=== PATIENT | female | born 1995 | race Caucasian/White ===

== ENCOUNTER 2018-12-17 14:19 | Inpatient (IN) | payer OTHER ==
[~2018-12-17] VITALS: Ht 165.1 cm; Wt 126.1 kg
[2018-12-17 15:32] LABS: BE -2.4 mmol/L (-2 to +3); HCO3 22.9 mmol/L (22.0-26.0); PCO2 41.3 mmHg (35.0-45.0); pH 7.362 (7.340-7.450)
[2018-12-17 15:33] LABS: PO2 250.7 mmHg (75.0-100.0)
--- NOTE | 2018-12-17 15:48 | EKG ---
[place] [address] ELECTROCARDIOGRAM REPORT Name: KARY RODRIGUESIE Room: [address] ADM IN M.R.#: [id number] Admission: 12/17/18 Attend Phys: Tom Meehan Discharge: Date of : 89 Report #: [id number] THIS REPORT FOR: //name// [facility] Test Date: 2018-12-17 Test Time: 14:47:34 Pat Name: EVAN RODRIGUES Department: Room: [address] Gender: F Family Program Specialist: NORA : 1995 Requested By: Jose Roth Order Number: [id number] SARAVIA: Antonio Miles Measurements Intervals [place] Rate: 99 P: 26 TN: 140 QRS: -17 QRSD: 99 T: 15 QT: 344 QTc: 442 Interpretive Statements Sinus rhythm Borderline left axis deviation No previous ECG available for comparison Electronically Signed On 12-17-2018 15:48:01 [employer]ARD TEACH[employer] by Antonio Miles [email or web address] <ELECTRONICALLY SIGNED> By: Antonio Miles MD, [facility] 12/17/18 1548 144 144 Antonio Miles MD, FACC /EPI
[2018-12-17 16:00] LABS: ABSOLUTE MONOCYTES 0.1 thou/uL (0.0-1.2); BASOPHILS 0.4 %; EOSINOPHILS 0.3 %; HEMATOCRIT 37.8 % (37.0-47.0); HEMOGLOBIN 12.4 gm/dL (12.0-15.0); MCH 26.7 pg (26.0-34.0); MCHC 32.7 g/dL (28.0-37.0); MCV 81.4 fL (80.0-100.0); MPV 7.6 fl. (7.2-11.1); NUCLEATED RBCS 0 /100WBC; PLATELET COUNT* 273 thou/uL (150-400); RBC 4.64 mil/uL (4.20-5.00); RDW-CV 15.7 % (10.5-14.5); WBC 10.7 thou/uL (4.0-11.0)
[2018-12-17 16:03] LABS: CALCIUM 8.2 mg/dL (8.5-10.1); CREATININE 0.8 mg/dL (0.6-1.3); POTASSIUM 3.6 mmol/L (3.5-5.1)
[2018-12-17 16:07] LABS: ABSOLUTE LYMPHOCYTES 1.1 thou/uL (0.8-5.3); ABSOLUTE NEUTROPHILS 9.4 thou/uL (1.6-8.1); LYMPHOCYTES 10.3 %; POLYS 87.9 %
[2018-12-17 16:08] LABS: MAGNESIUM 1.6 mg/dL (1.8-2.4); TOTAL BILIRUBIN 0.2 mg/dL (<0.1-1.0); TOTAL PROTEIN 6.8 g/dL (6.4-8.2)
--- NOTE | 2018-12-17 17:37 | 2DMMODE ---
[place] [address] 2 D/M-MODE ECHOCARDIOGRAM Name: EVAN RODRIGUES Room: [address] ADM IN [facility]#: [id number] Admission: 12/17/18 Attend Phys: Jose Roth Discharge: Date of : 89 Date of Service: 12/17/18 1737 Report #: [id number] THIS REPORT FOR: //name// APPROVED REPORT Study performed: 12/17/2018 16:30:19 EXAM: Comprehensive 2D, Doppler, and color-flow Echocardiogram Patient Location: In-Patient Room #: [facility] Status: routine BSA: 2.30 HR: 90 bpm BP: 148/88 mmHg Rhythm: NSR Other Information Study Quality: Good Indications Aspiration, rule out effusion 2D Dimensions IVSd: 10.26 (7-11mm) LVOT Diam: 19.11 (18-24mm) LVDd: 41.99 mm PWd: 9.66 (7-11mm) Ascending Ao: 27.92 (22-36mm) LVDs: 21.27 (25-40mm) Aortic Root: 29.52 mm Volumes Left Atrial Volume (Systole) LA ESV Index: 14.70 mL/m2 Aortic Valve AoV Peak Capo.: 1.22 m/s AO Peak Gr.: 5.91 mmHg LVOT Max P.84 mmHg AO Mean Gr.: 3.03 mmHg LVOT Mean P.40 mmHg LVOT Max V: 0.84 m/s AO V2 VTI: 22.45 cm LVOT Mean V: 0.54 m/s ADRIANA (VTI): 2.07 cm2 LVOT V1 VTI: 16.22 cm Mitral Valve E/A Ratio: 1.14 MV Decel. Time: 238.27 ms MV E Max Capo.: 0.74 m/s MV PHT: 69.10 [place] [address] 2 D/M-MODE ECHOCARDIOGRAM Name: ZAYDA RODRIGUESYLIE Room: [address] IN .R.#: [id number] Admission: 12/17/18 Attend Phys: Jose Roth Discharge: Date of : 89 Date of Service: 12/17/18 1737 Report #: [id number] MVA (PHT): 3.18 cm2 TDI E/Lateral E': 6.73 E/Medial E': 6.17 Medial E' Capo.: 0.12 m/s Lateral E' Capo.: 0.11 m/s Pulmonary Valve PV Peak Capo.: 1.02 m/s PV Peak Gr.: 4.19 mmHg Tricuspid Valve RAP Estimate: 5.00 mmHg TR Peak Gr.: 26.30 mmHg RVSP: 31.00 mmHg PA Pressure: 31.00 mmHg Left Ventricle The left ventricle is normal size. There is normal LV segmental wall motion. There is normal left ventricular wall thickness. Left ventricular systolic function is normal. LVEF is 65-70%. The left ventricular diastolic function is normal. Right Ventricle The right ventricle is normal size. The right ventricular systolic function is normal. Atria The left atrium size is normal. The right atrium size is normal. Aortic Valve The aortic valve is normal in structure. No aortic regurgitation is present. There is no aortic valvular stenosis. Mitral Valve The mitral valve is normal in structure. There is no mitral valve regurgitation noted. No evidence of mitral valve stenosis. Tricuspid Valve The tricuspid valve is normal in structure. Trace tricuspid regurgitation. The RVSP is 30 mmHg. Pulmonic Valve The pulmonary valve is normal in structure. There [place] [address] 2 D/M-MODE ECHOCARDIOGRAM Name: EVAN RODRIGUES Room: [address] IN [facility]#: [id number] Admission: 12/17/18 Attend Phys: Jose Roth Discharge: Date of : 89 Date of Service: 12/17/18 1737 Report #: [id number] regurgitation. Great Vessels The aortic root is normal in size. IVC is not well visualized. Pericardium There is no pericardial effusion. <Conclusion> The left ventricle is normal size. There is normal left ventricular wall thickness. Left ventricular systolic function is normal. LVEF is 65-70%. The left ventricular diastolic function is normal. Trace tricuspid regurgitation. The RVSP is 30 mmHg. <ELECTRONICALLY SIGNED> By: Cisco Zimmer MD, FACC 12/17/18 1737 1737 1737 Cisco Zimmer MD, FACC /INF
--- NOTE | 2018-12-17 18:01 | NUR ---
PT ADMITTED TO ICU FROM [facility]. PT INTUBATED AND SEDATED UPON ADMIT. 2ND IV ACCESS OBTAINED AND FLOEY CATHETER PLACED. RESTRAINTS TO BLW. AND FAMILY FRIENDS AT BEDSIDE.
[2018-12-17 18:13] LABS: BE -2.2 mmol/L (-2 to +3); HCO3 23.4 mmol/L (22.0-26.0); PCO2 43.1 mmHg (35.0-45.0); PO2 91.5 mmHg (75.0-100.0); pH 7.352 (7.340-7.450)
[2018-12-17 20:22] VITALS: BP 130/81
[2018-12-17 21:00] VITALS: BP 122/77
[2018-12-17 22:01] VITALS: BP 110/64
[2018-12-17 23:00] VITALS: BP 116/72
[2018-12-18] VITALS (18 sets, daily range): BP systolic 96–151; BP diastolic 43–90
[2018-12-18 03:26] LABS: HEMOGLOBIN 12.8 gm/dL (12.0-15.0); MCH 26.1 pg (26.0-34.0); MCHC 32.1 g/dL (28.0-37.0); MCV 81.5 fL (80.0-100.0); MPV 7.8 fl. (7.2-11.1); NUCLEATED RBCS 0 /100WBC; PLATELET COUNT* 347 thou/uL (150-400); RBC 4.91 mil/uL (4.20-5.00); WBC 15.7 thou/uL (4.0-11.0)
[2018-12-18 03:48] LABS: CALCIUM 9.1 mg/dL (8.5-10.1); POTASSIUM 4.2 mmol/L (3.5-5.1)
[2018-12-18 05:31] LABS: BE -3.3 mmol/L (-2 to +3); HCO3 22.1 mmol/L (22.0-26.0); PCO2 40.7 mmHg (35.0-45.0); PO2 75.7 mmHg (75.0-100.0); pH 7.352 (7.340-7.450)
[2018-12-18 06:47] LABS: ABSOLUTE LYMPHOCYTES 0.9 thou/uL (0.8-5.3); ABSOLUTE MONOCYTES 0.2 thou/uL (0.0-1.2); ABSOLUTE NEUTROPHILS 14.6 thou/uL (1.6-8.1); METAMYELOCYTES 2 %; PLATELET ESTIMATE ADEQUATE
--- NOTE | 2018-12-18 07:21 | NUR ---
NO CHANGE IN ASSESSMENT, SEE COMPUTERIZED ASSESSMENT CHARTING FOR FURTHER DETAILS. PROPOFOL GTT FOR SEDATION PER PROTOCOL VIA INFUSION PUMP, SAO2 =>99% ON FIO2 30%. MINIMAL WHITE THICK SPUTUM VIA INLINE SCUTIONING. NO ADVERE EFFECTS FROM IV ABT'S NOTED. HERE AT HS, UPDATED POC. SAFETY MAINTAINED.
[2018-12-18 10:32] LABS: BE 0.2 mmol/L (-2 to +3); HCO3 23.5 mmol/L (22.0-26.0); PCO2 34.4 mmHg (35.0-45.0); PO2 70.3 mmHg (75.0-100.0); pH 7.453 (7.340-7.450)
[2018-12-18 15:31] LABS: CALCIUM 8.9 mg/dL (8.5-10.1); CREATININE 1.5 mg/dL (0.6-1.3)
--- NOTE | 2018-12-18 16:50 | NUR ---
PT EXTUBATED AT 1020 THIS AM. PT CURRENLTY SITTING IN BED WITH AND BEDSIDE. PT PASSED SWALLOW STUDY THIS AFTERNOON AND ABLE TO EAT. PT UP SBA TO BEDSIDE COMMODE. PT ASKING TO EAT REGULAR DIET. LEFT MESSAGE FOR HOSPITALIST TO ADVANCE DIET. PT DOWNGRADED TO MS/TELE STATUS
--- NOTE | 2018-12-18 21:05 | NUR ---
PT A/O X4, UP AD FLORA, DENIES PAIN OR DISCOMFORT, AND FRIENDS AT BEDSIDE. UP TO BSC WITH STEADY GAIT, RA, SAO2 99%, REPORT CALLED TO BARBARA VILLARREAL, TRANFERING TO ROOM 201. COMMUNICATED TRANSFER WITH PT, DENIES NEEDS AT PRESENT TIME.
--- NOTE | 2018-12-18 21:32 | NUR ---
TRANSFERED TO ROOM 201 VIA W/C, ALL BELONGINGS SENT WITH PT, DENIES PAIN OR DISCOMFORT. REMAINS AT BESIDE.
[2018-12-19 03:39] VITALS: BP 113/64
--- NOTE | 2018-12-19 03:39 | NUR ---
PATIENT RESTED IN BED, NO ACUTE CHANGS. PATIENT DID NOT SHOW SIGNS OF DISTRESS. CALL LIGHT WITH IN REACH, HOURLY ROUNDING OBSERVED. PATIENT DID NOT SHOW SIGNS OF SOA.
[2018-12-19 05:30] LABS: ABSOLUTE LYMPHOCYTES 0.9 thou/uL (0.8-5.3); ABSOLUTE MONOCYTES 0.6 thou/uL (0.0-1.2); BASOPHILS 0.1 %; HEMATOCRIT 37.3 % (37.0-47.0); HEMOGLOBIN 12.2 gm/dL (12.0-15.0); LYMPHOCYTES 6.4 %; MCH 26.8 pg (26.0-34.0); MCHC 32.6 g/dL (28.0-37.0); MCV 82.2 fL (80.0-100.0); MONOCYTES 4.1 %; MPV 8.1 fl. (7.2-11.1); NUCLEATED RBCS 0 /100WBC; PLATELET COUNT* 333 thou/uL (150-400); POLYS 89.4 %; RBC 4.53 mil/uL (4.20-5.00); RDW-CV 15.8 % (10.5-14.5); WBC 14.5 thou/uL (4.0-11.0)
[2018-12-19 05:31] LABS: CREATININE 0.7 mg/dL (0.6-1.3); POTASSIUM 3.8 mmol/L (3.5-5.1)
[2018-12-19 08:01] VITALS: BP 110/70
[2018-12-19] MEDS ORDERED: ACCUNEB SO1.25 MG/1 INH (09:28)
[2018-12-19] MEDS ORDERED: AMOXIL 875 MG875 M2 PO (09:32)
[2018-12-19 09:34] VITALS: BP 110/70
--- NOTE | 2018-12-19 10:09 | NUR ---
ORDERS RECIEVIED FOR OKAY TO D/C THIS SHIFT PER - IV ABT COMPLETED PRIOR TO D/C- IV TO LEFT FA D/C'D ALONG WITH MOTION PICTURE SET GRIP PRIOR TO D/C- D/C EDUCATION/TEACHING GIVEN TO PT PRIOR TO D/C WITH ALL QUESTIONS AND CONCERNS ADDRESSED- WRITTEN EDUCATION ALONG WITH SCRIPT PROVIDED TO PT PRIOR TO D/C- BELONGINGS PACKED AND ACCOUNTED FOR PER PT- PT ESCORTED PER TECH VIA AMB TO VEHICLE AT 1010 WITH BELONGINGS; AT SIDE- NO PROBLEMS TO NOTE AT TIME OF D/C
--- NOTE | 2018-12-21 09:37 | CON ---
[address] [address] CONSULTATION Name: EVAN RODRIGUES Room: [address] IN M.R.#: [id number] Admission: 12/17/18 Attend Phys: Tom Meehan Discharge: 12/19/18 Date of : [birth year] Report #: [id number] THIS REPORT FOR: //name// CC: Hermilo Roth REASON FOR CONSULTATION: Respiratory failure. HISTORY OF PRESENT ILLNESS: This is a 23-year-old female patient who was on the vent, sedated with propofol during my visit. Her was at the bedside. She was admitted for elective right knee surgery from an injury she sustained couple of months ago, per the and at time of induction, she had what sounded like laryngeal spasm. It happened and anesthesia were at the bedside this morning checking on the patient during my visit and she reported that the patient after induction vomited too and developed laryngeal spasm and she started having frothy secretions. She was intubated and brought into the ICU. During my visit, she was on assist-control ventilation with 30% FiO2 and she was on propofol per hour and she wakes up easily, appropriately responding when the sedation runs out. Per the , she does not have a chronic lung disease, not on oxygen. She used inhaler earlier few months ago after she had central respiratory tract infection, but she does not carry a diagnosis of asthma. She does not have heart disease and no chronic medical problems. ALLERGIES: IBUPROFEN AND METFORMIN. REVIEW OF SYSTEMS: Unobtainable at this point, intubated and sedated. 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 FAMILY HISTORY: Similar genetic disorder, unspecified. PAST SURGICAL HISTORY: None. HOME MEDICATIONS: None regular. PHYSICAL EXAMINATION: VITAL SIGNS: On examination, overweight lady, intubated on the vent. Her temperature is 37.3. Her blood pressure is 130/70 during my visit, her O2 saturation is more than 95% on 30% FiO2. GENERAL: Comfortable, sedated and intubated. HEENT: Normocephalic, atraumatic. Pupils reactive to light. Oral cavity, moist mucous membranes. Mallampati of 2. NECK: Supple. No palpable lymph nodes. No palpable thyroid. Trachea [place] [address] CONSULTATION Name: EVAN RODRIGUES Room: [address]#: [id number] Admission: 12/17/18 Attend Phys: Tom Meehan Discharge: 12/19/18 Date of : 89 Report #: [id number] HEART: S1, S2. No murmur, no gallop. ABDOMEN: Benign, soft, lax and nontender. Positive bowel sounds. CHEST: Actually clear to auscultation. I did not hear added sounds, wheezes or crackles. EXTREMITIES: Lower extremities, no edema, no calf tenderness. NEUROLOGIC: She is sedated. LYMPHATICS: No palpable lymph nodes. SKIN: Normal for age and race. PSYCHIATRIC: Could not be evaluated. LABORATORY DATA: Her white blood count is 10.7, hemoglobin 12.4 and platelets of 273,000. Creatinine of 0.8, sodium 136 and potassium of 3.6 upon hospitalization, although it is 4.2 now. ABGs 7.35/40/75 and this was done on 30% FiO2 this morning. She had multiple chest x-rays during this hospitalization, which showed bilateral infiltrative process, vascular congestion versus infiltrate. IMPRESSION: 1. Acute hypoxic respiratory failure. 2. Pulmonary edema.non cardiogenic 3. Pulmonary infiltrate. 4. Possible aspiration into the airways. 5. Overweight. PLAN: Her echocardiogram was noted. No dysfunction was noted. Her EF is 65% to 70%. At this point, we will give her a dose of Lasix, continue the Zosyn and start her on scheduled nebulization treatment. I will give her a dose of steroids. We will give her a weaning trial this morning and depending on the parameter, we will decide about extubation. I did the bedside leak test and significant leak was heard during the test. Discussed with the RN and the patient's . Thank you for the consult. <ELECTRONICALLY SIGNED> By: Amber Elizabeth MD 12/21/18 0937 [id number] [id number] Elizabeth MD /nt
== END 2018-12-19 10:10 | disposition home or self-care (01) | DRG 208 ==
LOC: M.ICU 14:19 → M.2W 12-18 21:43
PROVIDERS: Internal Medicine; ADMIT Internal Medicine
PROC: 5A1935Z Respiratory Ventilation, Less than 24 Consecutive Hours (ICD-10-PCS; principal; 2018-12-17)
PROC: 0BH17EZ Insertion of Endotracheal Airway into Trachea, Via Natural or Artificial Opening (ICD-10-PCS; principal; 2018-12-17)
DX: J69.0 Pneumonitis due to inhalation of food and vomit (principal); J96.01 Acute respiratory failure with hypoxia; Z68.42 Body mass index [BMI] 45.0-49.9, adult; M19.90 Unspecified osteoarthritis, unspecified site; E66.9 Obesity, unspecified; E28.2 Polycystic ovarian syndrome; L73.2 Hidradenitis suppurativa; Z88.8 Allergy status to other drugs, medicaments and biological substances; Z84.81 Family history of carrier of genetic disease